=== PATIENT | male | born 1950 | race Caucasian/White ===

== ENCOUNTER 2017-10-07 02:29 | Emergency (ER) | payer MEDICARE, OTHER ==
[2017-10-07] MEDS: morphine 4 MG/ML VIAL IV ×2 (02:48→04:33)
[2017-10-07] MEDS: ONDANSETRON 4 MG INJ IV (02:48)
[2017-10-07] MEDS: SOD CHLORIDE 0.9% 1,000 ML IV (02:49)
[2017-10-07 02:54] LABS: ADD MAN DIFF? NO
[2017-10-07 02:58] LABS: WHITE BLOOD COUNT 7.4 10^3/ul (4.8-10.8)
[2017-10-07 02:58] LABS: BASOPHILS % 0.3 % (0.0-2.0); EOSINOPHILS # 0.2 10^3/ul (0.0-0.5); LYMPHOCYTES # 1.5 10^3/ul (0.8-2.9); LYMPHOCYTES % 20.1 % (15.0-51.0); MEAN CORPUSCULAR HEMOGLOBIN 30.1 pg (29.0-33.0); MEAN CORPUSCULAR HGB CONC 34.1 g/dl (32.0-37.0); MEAN CORPUSCULAR VOLUME 88.2 fl (82.0-101.0); MEAN PLATELET VOLUME 9.7 fl (7.4-10.4); MONOCYTE # 0.8 10^3/ul (0.3-0.9); MONOCYTES % 10.9 % (0.0-11.0); NEUTROPHIL # 4.9 10^3/ul (1.6-7.5); NEUTROPHILS % 66.3 % (39.0-77.0); PLATELET COUNT 241 10^3/UL (140-415); RED BLOOD COUNT 4.65 10^6/ul (4.70-6.10); RED CELL DISTRIBUTION WIDTH 13.4 % (11.5-14.5)
[2017-10-07] MEDS: KETOROLAC 30 MG INJ IV (03:09)
[2017-10-07] MEDS: METOCLOPRAMIDE 10 MG INJ IV (03:09)
[2017-10-07 03:20] LABS: ALANINE AMINOTRANSFERASE 44 IU/L (13-69); ALBUMIN 4.2 g/dl (3.3-4.9); ALBUMIN/GLOBULIN RATIO 1.61; ALKALINE PHOSPHATASE 78 IU/L (42-121); ANION GAP 13 (8-16); ASPARTATE AMINO TRANSFERASE 52 IU/L (15-46); BLOOD UREA NITROGEN 22 mg/dl (7-20); CALCIUM 9.2 mg/dl (8.4-10.2); CARBON DIOXIDE 25 mmol/L (21-31); CHLORIDE 108 mmol/L (97-110); CREATININE 0.65 mg/dl (0.61-1.24); GLUCOSE 145 mg/dl (70-220); LIPASE 230 U/L (23-300); POTASSIUM 3.5 mmol/L (3.5-5.1); SODIUM 142 mmol/L (135-144); TOTAL PROTEIN 6.8 g/dl (6.1-8.1)
[2017-10-07 03:44] LABS: TROPONIN-I < 0.012 ng/ml (0.00-0.12)
[2017-10-07 04:10] LABS: ADD UMIC NO; UR ASCORBIC ACID 40 mg/dL (NEGATIVE); UR BILIRUBIN (Dip) NEGATIVE (NEGATIVE); UR BLOOD (Dip) NEGATIVE (NEGATIVE); UR CLARITY CLEAR (CLEAR); UR COLOR YELLOW (YELLOW); UR GLUCOSE (Dip) NEGATIVE (NEGATIVE); UR KETONES (Dip) NEGATIVE (NEGATIVE); UR LEUKOCYTE ESTERASE (Dip) NEGATIVE Leu/ul (NEGATIVE); UR NITRITE (Dip) NEGATIVE (NEGATIVE); UR SPECIFIC GRAVITY (Dip) 1.018 (1.003-1.030); UR TOTAL PROTEIN (Dip) NEGATIVE (NEGATIVE); UR UROBILINOGEN (Dip) NEGATIVE (NEGATIVE)
[2017-10-07] MEDS: morphine 10 MG INJ IV ×2 (04:33→04:40)
== END 2017-10-07 06:47 | disposition home or self-care (01) ==
LOC: E/R 02:29
DX: K80.70 Calculus of gallbladder and bile duct without cholecystitis without obstruction (principal); R11.10 Vomiting, unspecified; Z96.651 Presence of right artificial knee joint
CPT/HCPCS: 36415; 76705; 80053; 81003; 83690; 84484; 85025; 93005; 96374; 96375; 96376; 99285-25

== ENCOUNTER 2017-12-02 11:04 | Day surgery (SDC) | payer MEDICARE, OTHER ==
[~2017-12-02 11:04] MED LIST: CEFAZOLIN 2 GM/50 ML (PMX) 50 ML IVPB; GLYCOPYRROLATE 0.4 MG INJ; SOD CHLORIDE 0.9% 1,000 ML IV
[2017-12-02] MEDS ORDERED: CEFAZOLIN 1 GM INJ ×2 (12:48→13:36)
[2017-12-02] MEDS ORDERED: ROCURONIUM 50 MG INJ (12:48)
[2017-12-02] MEDS ORDERED: PROPOFOL 20 ML (12:48)
[2017-12-02] MEDS ORDERED: MIDAZOLAM 1 MG/ML 2 ML INJ (12:49)
[2017-12-02] MEDS ORDERED: ROPIVACAINE 0.5 % 30 ML VIAL (12:49)
[2017-12-02] MEDS ORDERED: FENTAnyl 50 MCG/ML VIAL ×3 (12:49→14:57)
[2017-12-02] MEDS ORDERED: hydrALAzine 20 MG INJ (13:44)
[2017-12-02] MEDS ORDERED: ACETAMINOPHEN 1000MG/100ML IV 100 ML (13:45)
[2017-12-02] MEDS ORDERED: SUGAMMADEX SODIUM 200 MG/2 ML VIAL IV (13:45)
[2017-12-02] MEDS ORDERED: DEXAMETHASONE 4 MG/ML 1 ML INJ (13:45)
[2017-12-02] MEDS ORDERED: KETOROLAC 30 MG INJ (13:45)
[2017-12-02] MEDS ORDERED: ONDANSETRON 4 MG INJ (13:45)
[2017-12-02] MEDS ORDERED: METOCLOPRAMIDE 10 MG INJ (13:45)
[2017-12-02] MEDS: BUPIVACAINE 0.25% (MPF) 30 ML INJ (14:01)
[2017-12-02] MEDS: HYDROCODONE/APAP (5/325) TAB PO (14:30)
[2017-12-02] MEDS ORDERED: FENTAnyl 50 MCG/ML VIAL IV (15:00)
[2017-12-02] MEDS ORDERED: ONDANSETRON 4 MG INJ IV (15:00)
[2017-12-02] MEDS ORDERED: HYDROmorphONE (0.2 MG/ML) 10ML SYG IV ×2 (15:00)
[2017-12-02] MEDS: FENTAnyl 50 MCG/ML VIAL IV (15:09)
== END 2017-12-02 16:05 | disposition home or self-care (01) ==
LOC: SDS 11:04
DX: K80.10 Calculus of gallbladder with chronic cholecystitis without obstruction (principal); I10 Essential (primary) hypertension; E78.5 Hyperlipidemia, unspecified
CPT/HCPCS: 47562; 88304; 93005

== ENCOUNTER 2017-12-03 10:29 | Emergency (ER) | payer MEDICARE, OTHER ==
[2017-12-03] MEDS: SOD CHLORIDE 0.9% 1,000 ML IV (10:58)
[2017-12-03] MEDS: HYDROmorphONE 0.5 MG/0.5 ML SYG IV (10:59)
[2017-12-03] MEDS: ONDANSETRON 4 MG INJ IV (10:59)
[2017-12-03 11:12] LABS: ADD MAN DIFF? NO
[2017-12-03 11:18] LABS: WHITE BLOOD COUNT 7.7 10^3/ul (4.8-10.8)
[2017-12-03 11:18] LABS: BASOPHILS % 0.3 % (0.0-2.0); EOSINOPHILS % 0.3 % (0.0-7.0); HEMATOCRIT 38.8 % (42.0-52.0); LYMPHOCYTES # 0.9 10^3/ul (0.8-2.9); LYMPHOCYTES % 11.3 % (15.0-51.0); MEAN CORPUSCULAR HEMOGLOBIN 30.2 pg (29.0-33.0); MEAN CORPUSCULAR HGB CONC 33.5 g/dl (32.0-37.0); MEAN PLATELET VOLUME 9.6 fl (7.4-10.4); MONOCYTE # 0.6 10^3/ul (0.3-0.9); MONOCYTES % 7.5 % (0.0-11.0); NEUTROPHIL # 6.2 10^3/ul (1.6-7.5); NEUTROPHILS % 80.2 % (39.0-77.0); PLATELET COUNT 232 10^3/UL (140-415); RED BLOOD COUNT 4.31 10^6/ul (4.70-6.10); RED CELL DISTRIBUTION WIDTH 14.1 % (11.5-14.5)
[2017-12-03 11:34] LABS: ALANINE AMINOTRANSFERASE 109 IU/L (13-69); ALBUMIN/GLOBULIN RATIO 1.37; ALKALINE PHOSPHATASE 47 IU/L (42-121); ANION GAP 16 (8-16); ASPARTATE AMINO TRANSFERASE 141 IU/L (15-46); BILIRUBIN,INDIRECT 0.6 mg/dl (0-1.1); BILIRUBIN,TOTAL 0.6 mg/dl (0.2-1.3); BLOOD UREA NITROGEN 18 mg/dl (7-20); CARBON DIOXIDE 24 mmol/L (21-31); CHLORIDE 103 mmol/L (97-110); CREATININE 0.72 mg/dl (0.61-1.24); GLUCOSE 156 mg/dl (70-220); LIPASE 143 U/L (23-300); POTASSIUM 3.7 mmol/L (3.5-5.1); SODIUM 139 mmol/L (135-144); TOTAL PROTEIN 6.9 g/dl (6.1-8.1)
[2017-12-03 11:46] LABS: TROPONIN-I < 0.012 ng/ml (0.00-0.12)
[2017-12-03 11:51] LABS: INR 0.93; PARTIAL THROMBOPLASTIN TIME 26.6 Sec (25.0-35.0); PROTIME 12.6 Sec (11.9-14.9)
[2017-12-03] MEDS: IOHEXOL 300MG/ML 150 ML BTL (12:20)
[2017-12-03] MEDS: SOD CHLORIDE 0.9% 100 ML (12:20)
== END 2017-12-03 14:35 | disposition home or self-care (01) ==
LOC: E/R 10:29
DX: R11.2 Nausea with vomiting, unspecified (principal); G89.18 Other acute postprocedural pain; I10 Essential (primary) hypertension; R40.2142 Coma scale, eyes open, spontaneous, at arrival to emergency department; R40.2252 Coma scale, best verbal response, oriented, at arrival to emergency department; R40.2362 Coma scale, best motor response, obeys commands, at arrival to emergency department; Z96.659 Presence of unspecified artificial knee joint
CPT/HCPCS: 36415; 74177; 80053; 83690; 84484; 85025; 85610; 85730; 86850; 86900; 86901; 96374; 96375; 99285-25

== ENCOUNTER 2018-12-15 10:15 | Observation (INO) | payer MEDICARE, OTHER ==
[2018-12-09 12:44] LABS: ADD MAN DIFF? NO
[2018-12-09 12:57] LABS: ADD UMIC NO; UR ASCORBIC ACID NEGATIVE (NEGATIVE); UR BILIRUBIN (Dip) NEGATIVE (NEGATIVE); UR BLOOD (Dip) NEGATIVE (NEGATIVE); UR CLARITY CLEAR (CLEAR); UR COLOR YELLOW (YELLOW); UR GLUCOSE (Dip) NEGATIVE (NEGATIVE); UR KETONES (Dip) NEGATIVE (NEGATIVE); UR LEUKOCYTE ESTERASE (Dip) NEGATIVE Leu/ul (NEGATIVE); UR NITRITE (Dip) NEGATIVE (NEGATIVE); UR TOTAL PROTEIN (Dip) NEGATIVE (NEGATIVE); UR UROBILINOGEN (Dip) NEGATIVE (NEGATIVE)
[2018-12-09 12:59] LABS: WHITE BLOOD COUNT 5.8 10^3/ul (4.8-10.8)
[2018-12-09 12:59] LABS: BASOPHILS % 0.3 % (0.0-2.0); EOSINOPHILS # 0.2 10^3/ul (0.0-0.5); EOSINOPHILS % 2.8 % (0.0-7.0); HEMOGLOBIN 13.6 g/dl (14.0-18.0); LYMPHOCYTES # 1.5 10^3/ul (0.8-2.9); MEAN CORPUSCULAR HEMOGLOBIN 29.7 pg (29.0-33.0); MEAN CORPUSCULAR HGB CONC 32.4 g/dl (32.0-37.0); MEAN CORPUSCULAR VOLUME 91.7 fl (82.0-101.0); MEAN PLATELET VOLUME 9.4 fl (7.4-10.4); MONOCYTE # 0.7 10^3/ul (0.3-0.9); MONOCYTES % 12.6 % (0.0-11.0); NEUTROPHIL # 3.4 10^3/ul (1.6-7.5); NEUTROPHILS % 57.6 % (39.0-77.0); PLATELET COUNT 248 10^3/UL (140-415); RED BLOOD COUNT 4.58 10^6/ul (4.70-6.10); RED CELL DISTRIBUTION WIDTH 13.2 % (11.5-14.5)
[2018-12-09 13:06] LABS: ANION GAP 7 (5-13); CALCIUM 9.3 mg/dl (8.4-10.2); CARBON DIOXIDE 26 mmol/L (21-31); CHLORIDE 109 mmol/L (97-110); CREATININE 0.71 mg/dl (0.61-1.24); Estimated GFR > 60 mL/min (>60); GLUCOSE 69 mg/dl (70-220); POTASSIUM 4.4 mmol/L (3.5-5.1); SODIUM 142 mmol/L (135-144)
[2018-12-09 13:07] LABS: BLOOD UREA NITROGEN 21 mg/dl (7-20)
[2018-12-09 13:15] LABS: INR 0.89; PROTIME 12.1 Sec (11.9-14.9); PT RATIO 0.9
[2018-12-09 13:36] LABS: PROSTATE SPECIFIC ANTIGEN 0.5 ng/ml (0.0-4.0)
[2018-12-15] MEDS ORDERED: BUPIVACAINE 0.5% (SDV) 30 ML INJ (13:09)
[2018-12-15] MEDS ORDERED: MIDAZOLAM 1 MG/ML 2 ML INJ ×4 (13:20→13:32)
[2018-12-15] MEDS ORDERED: CEFAZOLIN 1 GM INJ (13:35)
[2018-12-15] MEDS ORDERED: KETAMINE (50 MG/ML) 10 ML VIAL (13:37)
[2018-12-15] MEDS: LIDOCAINE 1% (MPF) 30 ML INJ (13:46)
[2018-12-15] MEDS ORDERED: FENTAnyl 50 MCG/ML VIAL ×2 (14:24→16:10)
[2018-12-15] MEDS ORDERED: hydrALAzine 20 MG INJ (15:56)
[2018-12-15] MEDS: FENTAnyl 50 MCG/ML VIAL IV (20:39)
[2018-12-15] MEDS ORDERED: ACETAMINOPHEN 325 MG TAB PO (21:00)
[2018-12-15] MEDS: HYDROCODONE/APAP (5/325) TAB PO (21:45)
[2018-12-15] MEDS: TAMSULOSIN (SR) 0.4 MG CAP PO (21:45)
[2018-12-16] MEDS: HYDROCODONE/APAP (5/325) TAB PO ×5 (01:12→13:22)
[2018-12-16 05:53] LABS: ADD MAN DIFF? NO
[2018-12-16 05:59] LABS: WHITE BLOOD COUNT 8.2 10^3/ul (4.8-10.8)
[2018-12-16 05:59] LABS: BASOPHILS % 0.4 % (0.0-2.0); EOSINOPHILS % 0.4 % (0.0-7.0); HEMATOCRIT 40.4 % (42.0-52.0); HEMOGLOBIN 13.4 g/dl (14.0-18.0); LYMPHOCYTES # 1.4 10^3/ul (0.8-2.9); MEAN CORPUSCULAR HEMOGLOBIN 29.8 pg (29.0-33.0); MEAN CORPUSCULAR HGB CONC 33.2 g/dl (32.0-37.0); MEAN CORPUSCULAR VOLUME 89.8 fl (82.0-101.0); MEAN PLATELET VOLUME 10.3 fl (7.4-10.4); MONOCYTES % 12.2 % (0.0-11.0); NEUTROPHIL # 5.7 10^3/ul (1.6-7.5); NEUTROPHILS % 69.5 % (39.0-77.0); PLATELET COUNT 215 10^3/UL (140-415); RED CELL DISTRIBUTION WIDTH 13.6 % (11.5-14.5)
[2018-12-16 06:29] LABS: ANION GAP 8 (5-13); BLOOD UREA NITROGEN 10 mg/dl (7-20); CARBON DIOXIDE 25 mmol/L (21-31); CHLORIDE 105 mmol/L (97-110); CREATININE 0.58 mg/dl (0.61-1.24); Estimated GFR > 60 mL/min (>60); GLUCOSE 104 mg/dl (70-220); POTASSIUM 3.6 mmol/L (3.5-5.1); SODIUM 138 mmol/L (135-144)
[2018-12-16] MEDS: LOSARTAN 50 MG TAB PO (08:37)
[2018-12-16] MEDS: LACTATED RINGER'S 1,000 ML IV (08:37)
[2018-12-16] MEDS ORDERED: TAMSULOSIN (SR) 0.4 MG CAP PO (21:00)
[2018-12-17] MEDS ORDERED: LOSARTAN 25 MG TAB PO (09:00)
== END 2018-12-16 15:40 | disposition home or self-care (01) ==
LOC: SDS 10:15 → MS1 20:22
DX: M20.41 Other hammer toe(s) (acquired), right foot (principal); M24.574 Contracture, right foot; I10 Essential (primary) hypertension; N40.0 Benign prostatic hyperplasia without lower urinary tract symptoms; G47.00 Insomnia, unspecified; Z87.891 Personal history of nicotine dependence
CPT/HCPCS: 28285; 71045; 73630; 80048; 81003; 84153; 84154; 85025; 85610; 85730; 88304; 88311; 93005